=== PATIENT | female | born 1975 | race Hispanic/Latino ===

== ENCOUNTER → 2018-03-10 | Outpatient (CLI) | payer BC | END | disposition home or self-care (01) | LOC: RAH 02-24 10:57 | PROVIDERS: ATTEND Physician Assistant Medical | DX: N60.01 Solitary cyst of right breast (principal); N60.02 Solitary cyst of left breast; R92.8 Other abnormal and inconclusive findings on diagnostic imaging of breast | CPT/HCPCS: 76641; 77066 ==

== ENCOUNTER → 2019-03-16 | Outpatient (CLI) | payer BC | END | disposition home or self-care (01) | LOC: RAH 10:53 | PROVIDERS: ATTEND Physician Assistant Medical | DX: N60.02 Solitary cyst of left breast (principal); N60.01 Solitary cyst of right breast | CPT/HCPCS: 76641; 77066 ==

== ENCOUNTER → 2023-08-19 | Outpatient (CLI) | payer OTHER | END | disposition home or self-care (01) | LOC: RAH 13:58 | PROVIDERS: ATTEND Obstetrics & Gynecology | DX: N60.01 Solitary cyst of right breast (principal); N60.02 Solitary cyst of left breast; N60.12 Diffuse cystic mastopathy of left breast; N60.11 Diffuse cystic mastopathy of right breast | CPT/HCPCS: 77066 ==

== ENCOUNTER → 2024-08-28 | Outpatient (CLI) | payer OTHER ==
--- NOTE | 2024-08-28 10:29 | HMCIMG ---
Exam Type: MAMMO DX BILATERAL, US BREAST BILATERAL Clinical Information: DIFFUSE CYSTIC MASTOPATHY Comparison: August 19, 2023 TECHNIQUE: Mammogram with CAD was performed with CC and MLO and ML projections. FINDINGS: Breast parenchyma is heterogeneously dense which lowers the sensitivity of the mammographic examination. No dominant mass or suspicious microcalcification identified. There is no nipple retraction or skin thickening. Benign-appearing calcifications are seen. CAD shows no worrisome regions. Bilateral breast ultrasound was performed. Simple cysts all of the right breast 9:00 position, 4 mm, the left breast 12:00 position, 4 mm, left breast 1:00 position, 7 mm. Bilateral benign-appearing axillary lymph nodes. No worrisome lesions seen either side. IMPRESSION: 1. No mammographic or sonographic signs of malignancy.. 2. Routine follow-up recommended. BI-RADS: CATEGORY 2: BENIGN FINDINGS Note: A negative x-ray should not delay biopsy if a dominant or clinically suspicious mass is present, since 8-10% of cancers are not identified by mammography. Dense breasts, particularly, may obscure an underlying neoplasm.
== END | disposition home or self-care (01) ==
LOC: RAH 09:10
PROVIDERS: ATTEND Obstetrics & Gynecology
DX: N60.01 Solitary cyst of right breast (principal); N60.02 Solitary cyst of left breast; N60.11 Diffuse cystic mastopathy of right breast; N60.12 Diffuse cystic mastopathy of left breast; R92.333 Mammographic heterogeneous density, bilateral breasts; R92.1 Mammographic calcification found on diagnostic imaging of breast
CPT/HCPCS: 77066